=== PATIENT | female | born 1935 | race Caucasian/White ===

== ENCOUNTER → 2023-06-27 09:50 | Outpatient (REF) | payer OTHER, MEDICARE, MEDICAID, SELFPAY ==
[2023-06-27 11:08] LABS: Blood Urea Nitrogen 10 mg/dl (7-17); Calcium 8.2 mg/dl (8.4-10.2); Carbon Dioxide 33 mmol/L (22-30); Chloride 101 mmol/L (98-107); Glucose 89 mg/dl (70-99); Potassium 3.7 mmol/L (3.5-5.1); Sodium 134 mmol/L (135-145); eGFR > 60.00
== END ==
LOC: OLABN 09:50
PROVIDERS: ATTENDING PHYSICIAN Student in an Organized Health Care Education/Training Program
DX: I89.0 Lymphedema, not elsewhere classified (principal)
CPT/HCPCS: 36415; 80048

== ENCOUNTER → 2023-08-03 11:57 | Outpatient (REF) | payer MEDICARE, MEDICAID, SELFPAY ==
[2023-08-03 13:56] LABS: TSH 9.61 uIU/ml (0.47-4.68)
== END ==
LOC: OLABN 11:57
PROVIDERS: ATTENDING PHYSICIAN Student in an Organized Health Care Education/Training Program
DX: E03.9 Hypothyroidism, unspecified (principal)
CPT/HCPCS: 36415; 84443

== ENCOUNTER → 2023-09-04 09:44 | Outpatient (REF) | payer MEDICARE, MEDICAID, SELFPAY ==
[2023-09-04 14:30] LABS: TSH 9.05 uIU/ml (0.47-4.68)
== END ==
LOC: OLABN 09:44
PROVIDERS: ATTENDING PHYSICIAN Student in an Organized Health Care Education/Training Program
DX: E03.9 Hypothyroidism, unspecified (principal)
CPT/HCPCS: 36415; 84443

== ENCOUNTER → 2023-09-18 09:45 | Outpatient (REF) | payer MEDICARE, MEDICAID, SELFPAY ==
[2023-09-18 11:53] LABS: Free T4 1.32 ng/dl (0.78-2.19)
[2023-09-18 12:07] LABS: TSH 6.19 uIU/ml (0.47-4.68)
== END ==
LOC: OLABN 09:45
PROVIDERS: ATTENDING PHYSICIAN Student in an Organized Health Care Education/Training Program
DX: E03.9 Hypothyroidism, unspecified (principal)
CPT/HCPCS: 36415; 84439; 84443

== ENCOUNTER → 2023-10-03 09:44 | Outpatient (REF) | payer MEDICARE, MEDICAID, SELFPAY ==
[2023-10-03 11:59] LABS: Free T4 1.64 ng/dl (0.78-2.19)
[2023-10-03 12:13] LABS: TSH 5.62 uIU/ml (0.47-4.68)
== END ==
LOC: OLABN 09:44
PROVIDERS: ATTENDING PHYSICIAN Student in an Organized Health Care Education/Training Program
DX: E03.9 Hypothyroidism, unspecified (principal)
CPT/HCPCS: 36415; 84439; 84443